=== PATIENT | female | born 1995 | race Caucasian/White ===

== ENCOUNTER 2023-11-23 17:22 | Emergency (ER) | payer OTHER, SELFPAY ==
[2023-11-23 17:27] VITALS: BP 144/92; PULSE 105; RESP 15; TEMP 36.6; O2SAT 100; BMI 41.0
--- NOTE | 2023-11-23 17:30 | DI.RAD.S_ITS ---
PROCEDURE: XR FINGER LT MIN 2V INDICATIONS: caught thumb in door TECHNIQUE: AP hand, 2 views of the 1st finger(s) acquired. COMPARISON: None. FINDINGS: Bones: There is comminuted 1st distal phalangeal tip fracture with minimal displacement. No suspicious bony lesions. Soft tissues: No suspicious soft tissue calcifications. IMPRESSION: Comminuted 1st distal phalangeal tip fracture. Dictated by: Chase Devine M.D. on 11/23/2023 at 18:24 Approved by: Chase Devine M.D. on 11/23/2023 at 18:25
--- NOTE | 2023-11-23 17:43 | ED.UPPEXIN ---
HPI - Extremity Injury (Upper) <PIEDAD Coats Last Filed: 11/23/23 18:35> General Chief Complaint: Extremity Injury, Upper Stated Complaint: thum stuck in car door, bleeding Time Seen by Provider: 11/23/23 17:36 Source: patient Mode of arrival: Ambulatory History of Present Illness HPI narrative: This is a 28-year-old female presents to the emergency department due to injuring her left thumb and thumb when she was closing a car door and it closed on her left thumb. She had not hurt any other part of her body. She was on blood thinners. Minimal active bleeding. Denies any pain to the interphalangeal joint of the thumb or any other part of the hand. Related Data Previous Rx's Medication Instructions Recorded cephalexin 500 mg capsule 500 mg PO QID 10 days #40 caps 11/23/23 Allergies Allergy/AdvReac Type Severity Reaction Status Date / Time No Known Drug Allergies Allergy Verified 11/23/23 17:27 Review of Systems <PIEDAD Coats Last Filed: 11/23/23 18:35> Review of Systems Narrative: GENERAL: Denies chills, fatigue, malaise, fever, sweats. HEENT: Denies sinus pain, ear pain, sore throat, difficulty swallowing, dizziness. RESPIRATORY: Denies dyspnea, cough, wheezing, hemoptysis, sputum. CARDIOVASCULAR: Denies chest pain, palpitations, orthopnea, edema, GASTROINTESTINAL: Denies nausea, v painomiting, abdominal pain, diarrhea, constipation, melena. : Denies dysuria, frequency, incontinence, hematuria, urinary retention. MUSCULOSKELETAL: Thumb pain SKIN: Denies rash, skin lesions, or other NEUROLOGIC: Denies weakness, headache, numbness, change in speech, confusion, seizures, incoordination. PSYCHIATRIC: No concerning psychosocial issues. 12 point review of systems is negative except for those stated above Patient History <PIEDAD Coats Last Filed: 11/23/23 18:35> Social History Smoking Status: Unknown if ever smoked Smoking Status: Unknown if ever smoked alcohol intake frequency: holidays/special occasions only Substance Use Type: marijuana Exam <PIEDAD Coats Last Filed: 11/23/23 18:35> Narrative Exam Narrative: GENERAL: Well-developed patient, in mild distress. HEAD: Atraumatic. Normocephalic. EYES: Pupils equal round and reactive. Extraocular motions intact. No scleral icterus. No injection or drainage. ENT: Nose without bleeding, purulent drainage. Throat without erythema, tonsillar hypertrophy or exudate. Airway patent. NECK: Trachea midline. Non tender EXTREMITIES: left thumb has a proximally 1 cm laceration longitudinally across the nail, not affecting the cuticle. 2+ cap refill of the thumb. No tenderness to palpation to the interphalangeal joint NEURO: AOx3. SKIN: No rash or erythema of visible areas Initial Vital Signs Initial Vital Signs: Vital Signs Temperature 97.8 F 11/23/23 17:27 Pulse Rate 105 H 11/23/23 17:27 Respiratory Rate 15 11/23/23 17:27 Blood Pressure 144/92 H 11/23/23 17:27 Pulse Oximetry 100 11/23/23 17:27 Oxygen Delivery Method Room Air 11/23/23 17:27 <Carmina Syed DO - Last Filed: 11/24/23 10:53> Initial Vital Signs Initial Vital Signs: Vital Signs Temperature 97.8 F 11/23/23 17:27 Pulse Rate 105 H 11/23/23 17:27 Respiratory Rate 15 11/23/23 17:27 Blood Pressure 144/92 H 11/23/23 17:27 Pulse Oximetry 100 11/23/23 17:27 Oxygen Delivery Method Room Air 11/23/23 17:27 Procedures <Nasir Abbasi PA-C - Last Filed: 11/23/23 18:35> Laceration Repair Laceration 1: Time of procedure: 18:23 Site: other (Thumb ) Side (If applicable): left Size (cm): 1 Description: linear Depth: simple, single layer Pre-repair: irrigated extensively Skin layer closed with: dermabond Course <Nasir Abbasi PA-C - Last Filed: 11/23/23 18:35> Orders Ordered: Discontinued Medications Diphtheria/Tetanus/Acell Pertussis (Tet,Diph,Pertuss(Acell),Vac/Pf 0.5 Ml Syringe) 0.5 ml IM .ONCE ONE Stop: 11/23/23 17:44 Last Admin: 11/23/23 18:03 Dose: 0.5 ml Documented By: RB Vital Signs Vital signs: Vital Signs - 8 hr 11/23/23 17:27 11/23/23 18:05 Temperature 97.8 F Pulse Rate 105 H Pulse Rate [Left Radial] 80 Respiratory Rate 15 Blood Pressure 144/92 H Pulse Oximetry 100 Oxygen Delivery Method Room Air <Carmina Syed DO - Last Filed: 11/24/23 10:53> Orders Ordered: Discontinued Medications Diphtheria/Tetanus/Acell Pertussis (Tet,Diph,Pertuss(Acell),Vac/Pf 0.5 Ml Syringe) 0.5 ml IM .ONCE ONE Stop: 11/23/23 17:44 Last Admin: 11/23/23 18:03 Dose: 0.5 ml Documented By: RB Vital Signs Vital signs: Vital Signs - 8 hr 11/23/23 17:27 11/23/23 18:05 Temperature 97.8 F Pulse Rate 105 H Pulse Rate [Left Radial] 80 Respiratory Rate 15 Blood Pressure 144/92 H Pulse Oximetry 100 Oxygen Delivery Method Room Air MDM - Extremity Injury (Upper) <Nasir Abbasi PA-C - Last Filed: 11/23/23 18:35> Imaging Data Extremity x-ray #1: Radiologist's Impression: [place] [id number] XRay Report Signed Patient: Teressa Centeno MR#: [id number] : 1995 Acct:[id number] Age/Sex: 28 / F Date of Service: 11/23/23 Loc: ED Accession Number: [id number] Procedure: XR finger LT min 2V Ordering Provider: Carmina Syed D.O. PROCEDURE: XR FINGER LT MIN 2V INDICATIONS: caught thumb in door TECHNIQUE: AP hand, 2 views of the 1st finger(s) acquired. COMPARISON: None. FINDINGS: Bones: There is comminuted 1st distal phalangeal tip fracture with minimal displacement. No suspicious bony lesions. Soft tissues: No suspicious soft tissue calcifications. IMPRESSION: Comminuted 1st distal phalangeal tip fracture. Dictated by: Chase Devine M.D. on 11/23/2023 at 18:24 Approved by: Chase Devine M.D. on 11/23/2023 at 18:25 [facility] Narrative Medical decision making narrative: ED course: this is a 28-year-old female presents to the emergency department due to a left thumb injury. X-ray shows a fracture of the distal phalanges of the left hand thumb. There also was a laceration across the nail bed which was closed without complications using Dermabond. Patient was prescribed cephalexin as this is an open fracture. Patient is from [place] and chose to follow up with her primary care provider for further orthopedic follow up. she was neurovascularly intact throughout CC: Left thumb pain Complicating co-morbidities: none Data collected from: Previous notes Medical records reviewed: patient was not been to this emergency department in the past. Differential considered, but not limited to: fracture, neurovascular injury Exam documented above, pertinent findings include: no tenderness to palpation to the interphalangeal joint. Lab Test results independently reviewed as above. Pertinent findings: None obtained Imaging studies independently reviewed: shows fracture of the distal phalanx Scores Used: None MIPS Elements: None Consultations: None Treatments: Dermabond to the laceration, irrigation, finger splint Re-evaluations: none Discussion: Discussed plan with the patient was comfortable with the plan Diagnosis: distal phalanx fracture, laceration Disposition: see below, along with detailed discharge instructions that have been reviewed with patient as well as indications for ED re-evaluation and additional outpatient follow up Discharge Plan Departure Patient Disposition: Home Clinical Impression: Fracture of distal phalanx of finger Activity Restrictions/Additional Instructions: Thank you for coming to the [facility] Emergency Department today. as we discussed you have a fracture to the distal part of your thumb. Please have your primary care provider refer you to orthopedics when you go back to [place] for further evaluation and follow up. Please take the oral antibiotics as prescribed. Please return to the emergency department if you develop any Fevers, redness spreading up the hand, purulent discharge coming from the thumb, or any other concerning signs or symptoms. I hope you feel better soon. Please follow up with your primary care provider within a week if your symptoms continue. If you do not have a primary care provider please contact the [facility] Resource line at [phone]. They will ask some questions about your medical history and help you get set up with a provider in the community. Prescriptions: New cephalexin 500 mg capsule 500 mg PO QID 10 Days Qty: 40 0RF Referrals: Miscellaneous,[facility] [Primary Care Provider] - Stand Alone Forms: Patient Portal/API ED Sign-out <Carmina Syed, DO - Last Filed: 11/24/23 10:53> Cosign ED Attending Cosignature Attestation: I was available for consultation.
[2023-11-23] MEDS: TET,DIPH,PERTUSS(ACELL),VAC/PF 0.5 ML SYRINGE IM (18:03)
[2023-11-23 18:05] VITALS: PULSE 80
[2023-11-23 18:35] VITALS: BP 152/67; PULSE 74; RESP 18; TEMP 36.8; O2SAT 97
== END 2023-11-23 18:52 | disposition home or self-care (01) ==
PROVIDERS: Emergency Provider Physician Assistant Medical
DX: S62.522B Displaced fracture of distal phalanx of left thumb, initial encounter for open fracture (principal); X58.XXXA Exposure to other specified factors, initial encounter; Y93.89 Activity, other specified; Z23 Encounter for immunization
CPT/HCPCS: 12001; 73140; 90471; 99283; 90715